=== PATIENT | male | born 1985 | race Caucasian/White ===

== ENCOUNTER → 2020-03-29 | Outpatient (CLI) | payer OTHER | LOC: MHCPAIN 08:45 | DX: M54.5 Low back pain (principal); M53.3 Sacrococcygeal disorders, not elsewhere classified; G89.29 Other chronic pain | CPT/HCPCS: G0463 ==

== ENCOUNTER 2021-09-09 12:38 | Observation (INO) | payer SELFPAY ==
[2021-09-09] VITALS (11 sets, daily range): BP systolic 126–148; BP diastolic 78–92; PULSE 64–84; TEMP 97.5–98.4
[~2021-09-09] VITALS: Ht 175.3 cm; Wt 111.0 kg
[2021-09-09] MEDS ORDERED: WELLBUTRIN XL300 M1 PO (14:46)
[2021-09-09] MEDS ORDERED: CYMBALTA 20MG20 MG PO (14:47)
[2021-09-09] MEDS ORDERED: MAGNESIUM200 MG PO (14:48)
[2021-09-09] MEDS ORDERED: NAPROSYN500 MG PO (14:48)
[2021-09-09] MEDS ORDERED: VITAMIN D31000 I1 PO (14:49)
[2021-09-09] MEDS ORDERED: FLOMAX 0.40.4 MG/CAP PO ×2 (15:29→16:47)
[2021-09-09] MEDS ORDERED: NORCO 325 MG-51 TAB PO ×2 (15:30→16:47)
--- NOTE | 2021-09-09 15:43 | NUR ---
PT TAKEN TO SURGERY @ THIS TIME, CONSENT HAS BEEN SIGNED. PT'S IS ACCOMPANYING. PRE-OP IVF INFUSING INTO RIGHT FOREARM IV. PT HAD ARRIVED TO ROOM FROM [facility] @ 6215, CAME VIA PRIVATE VEHICLE. MED REC COMPLETED ET ALLERGIES VERIFIED.
--- NOTE | 2021-09-09 18:11 | NUR ---
PT ARRIVED BACK TO ROOM FROM PACU @ 1725. PT IS DROWSY BUT REQUESTS TO GO TO BR, FEELS PRESSURE LIKE HE NEEDS TO HAVE A BM OR URINATE. PT IS SBA TO TOILET, IS UNABLE TO VOID BUT "A FEW DRIBBLES", DOES NOT HAVE A BM. POST OP IVF INFUSING. RESPIRATIONS UNLABORED ON RA. PT ALLOWED TO REST. CALL LIGHT WITHIN REACH.
--- NOTE | 2021-09-09 20:11 | NUR ---
PT UP IN ROOM, REPORTS BEING MISERABLE WITH ABD PAIN. MEDICATED WITH MORPHINE 2MG IVP AND ZOFRAN 4MG IVP WELL PERCOCET 1 TAB PO NOW. WILL MONITOR FOR CHANGES.
--- NOTE | 2021-09-09 20:52 | NUR ---
PT REMAINS MISERABLE IN PAIN, NOTIFIED GIOVANI GARCIA TO KEEP PT OVERNIGHT, NEW ORDERS FOR FLOMAX NOW AND IVF AT 75CC/HR.
--- NOTE | 2021-09-09 21:20 | NUR ---
IVF NS AT 75CC/HR INFUSING TO RFA WITHOUT PROBLEM. PT REPORTS PAIN CONTINUES TO KIDNEYS, 6/10 ON PAIN SCALE. MEDICATED WITH PERCOCET 1 TAB NOW. PT VOIDING WELL, URINE SLIGHTLY PINK, GOOD VOLUMES.
--- NOTE | 2021-09-09 23:44 | NUR ---
PT STILL HAVING PAIN, MEDICATED WITH SCHEDULED TORADOL 15MG IVP AND MORPHINE 2MG IVP AT THIS TIME.
--- NOTE | 2021-09-10 02:18 | NUR ---
PT REPORTS PAIN 6/10 TO KIDNEYS, DESCRIBES BEING "GUTTED" ESPECIALLY AFTER VOIDING. MEDICATED WITH PERCOCET 1 TAB AT THIS TIME. URINE YELLOW NOW, GOOD VOLUMES, REPORTS GOOD URINE STREAM.
--- NOTE | 2021-09-10 03:07 | NUR ---
PT ASKING FOR SECOND PERCOCET FOR KIDNEY PAIN, GIVEN AT THIS TIME.
[2021-09-10 03:31] VITALS: BP 141/86; PULSE 71; TEMP 97.9
--- NOTE | 2021-09-10 03:40 | NUR ---
SPOKE WITH DR BASS REGARDING PTS PAIN. NEW ORDERS RECIEVED.
--- NOTE | 2021-09-10 03:49 | NUR ---
LEVSIN GIVEN SL, VALIUM PO AND MORPHINE 4MG IVP. IVF CAPPED. PT TAKING PO WELL.
--- NOTE | 2021-09-10 06:16 | NUR ---
PT CALLS FOR PAIN MEDS. HAD BEEN UP TO BATHROOM TO VOID, 700CC OF YELLOW URINE. RATES PAIN 8/. MEDICATED WITH MORPHINE 4MG IVP AND SCHEDULED TORADOL. REPORTS VALIUM HELPED HIM RELAX FOR A SHORT TIME.
[2021-09-10 08:09] VITALS: BP 123/74; PULSE 97; TEMP 97.9
--- NOTE | 2021-09-10 08:20 | NUR ---
PT LAYING SUPINE IN BED ON ROOM AIR. PT STATES THAT HIS PAIN IS AN 8 OUT OF 10 IN HIS ABD. PRN PAIN MEDICATION IS GIVEN. PT STATES NO OTHER NEEDS/CONCERNS. CALL LIGHT IS WITHIN REACH.
--- NOTE | 2021-09-10 10:40 | NUR ---
Initial visit; Patient thanked General Laborer for coming by. Patient very uncomfortable and in pain. General Laborer offered God's blessings and will continue to look in on Anthony.
[2021-09-10 11:32] VITALS: BP 126/69; PULSE 117; TEMP 98.3
== END 2021-09-10 13:30 | disposition home or self-care (01) ==
LOC: SURG 12:38
PROVIDERS: ADMIT Urology
DX: N20.2 Calculus of kidney with calculus of ureter (principal)
CPT/HCPCS: C1769; C2617; J0690; J1100; J1885; J2270; J2405; J2704; J3010; J7030; Q9967